=== PATIENT | male | born 1980 | race Two or more races ===

== ENCOUNTER 2019-02-21 14:27 | Outpatient (CLI) | payer OTHER ==
[~2019-02-21 14:27] MED LIST: ALTACE10 MG PO
== END 2019-02-21 14:37 | disposition home or self-care (01) ==
LOC: RAD 14:27
DX: R05 Cough (principal)

== ENCOUNTER 2020-04-05 15:14 | Outpatient (CLI) | payer OTHER | END 2020-04-05 15:23 | disposition home or self-care (01) | LOC: RAD 15:14 | PROVIDERS: ATTEND Orthopaedic Surgery | DX: M25.571 Pain in right ankle and joints of right foot (principal); M79.642 Pain in left hand; M25.342 Other instability, left hand ==

== ENCOUNTER 2020-04-18 12:17 | Outpatient (CLI) | payer OTHER | END 2020-04-18 12:43 | disposition home or self-care (01) | LOC: SONOGRAMA 12:17 | PROVIDERS: ATTEND Orthopaedic Surgery | DX: M25.571 Pain in right ankle and joints of right foot (principal); M25.342 Other instability, left hand ==

== ENCOUNTER 2025-06-10 16:07 | Emergency (ER) | payer OTHER ==
[~2025-06-10] VITALS: Ht 162.6 cm; Wt 70.3 kg
[2025-06-10] MEDS ORDERED: LIPITOR20 MG PO (19:14)
[2025-06-10] MEDS ORDERED: [UNRECOGNIZED DRUG - OTHER] PO (19:15)
[2025-06-10] MEDS ORDERED: FAMOTIDINE/PF 20 MG in 0.9 % SODIUM CHLORIDE 8 ML IV PUSH ONE (19:45)
[2025-06-10] MEDS ORDERED: ACETAMINOPHEN 500 MG GEL..CAP PO ONE ×2 (19:45→19:58)
[2025-06-10] MEDS ORDERED: 0.9 % SODIUM CHLORIDE 1,000 ML IV SCH (19:45)
[2025-06-10] MEDS ORDERED: LABETALOL HCL 20MG/4ML SYRINGE IV ONE (19:45)
[2025-06-10] MEDS ORDERED: FAMOTIDINE/PF 20 MG/2 ML VIAL ONE (19:58)
[2025-06-10] MEDS ORDERED: LABETALOL HCL 100 MG/20 ML ML ONE (19:58)
[2025-06-10] MEDS ORDERED: ONDANSETRON HCL 4 MG in 0.9 % SODIUM CHLORIDE 50 ML IV ONE (20:00)
[2025-06-10 20:04] LABS: BASO % 0.3 % (0.1-1.2); EOS # 0.63 (0.04-0.54); EOS % 5.5 % (0.7-7.0); LYMPH # 2.74 (1.18-3.74); LYMPH % 23.7 % (19.3-53.1); MEAN PLATELET VOLUME 9.50 fl (9.4-12.4); MONO # 1.30 (0.24-0.82); MONO % 11.3 % (4.7-12.5); NEUT # 6.79 (1.56-6.13); NEUT % 58.9 % (34.0-71.1); RED CELL DISTRIBUTION WIDTH 13.5 % (11.6-14.4)
[2025-06-10 20:31] LABS: URINE APPEARANCE Clear; URINE BILIRRUBIN Negative (NEGATIVE); URINE COLOR Yellow; URINE GLUCOSE Negative (NEGATIVE); URINE KETONE Negative (NEGATIVE); URINE LEUKOCYTE Negative; URINE NITRATE Negative; URINE PROTEIN Negative (NEGATIVE); URINE UROBILINOGEN 1.0 E.U./dl
[2025-06-10 20:36] LABS: INR 0.97
[2025-06-10 20:41] LABS: ALT/SGPT 30.0 U/L (12-78); AST/SGOT 20.0 U/L (15-37); BILIRUBIN TOTAL 0.41 mg/dL (0.3-1.2); BUN CREA RATIO 17.0 (7.0-25.0); CREATININE SERUM 0.93 mg/dL (0.70-1.30); GFR 87.86; GLOBULINA 4.3 G/DL (2.4-3.5); GLUCOSE FASTING 100.0 mg/dL (65-100); OSMOLALITY SERUM 277.0 MOSM/KG (275-295)
[2025-06-10] MEDS ORDERED: hydrALAZINE HCL 20 MG VIAL ONE (20:50)
[2025-06-10 20:57] LABS: URINE BACTERIA 9.1 uL (0.0-1933); URINE RBC 58.7 uL (0.0-20.8)
[2025-06-10] MEDS ORDERED: hydrALAZINE HCL 20 MG VIAL IV ONE (21:00)
[2025-06-10] MEDS ORDERED: POTASSIUM BICARBONATE/CIT AC 25 MEQ TABLET.EFF PO ONE (21:15)
[2025-06-10] MEDS ORDERED: POTASSIUM CHLORIDE IN WATER 100 ML IV ONE (21:15)
[2025-06-10 21:26] LABS: URINE BLOOD TRACE; URINE CAST 0.00 uL (0.0-1.40); URINE EPITHELIAL CELLS 0.6 uL (0.0-38.8); URINE WBC 0.4 uL (0.0-23.2)
[2025-06-10] MEDS ORDERED: MAGNESIUM SULFATE 50% 1,000 MG/2 ML VIAL ONE (21:42)
[2025-06-10] MEDS ORDERED: POTASSIUM CHLORIDE/NACL 0.9% 20 MEQ/1,000 ML PIGGYBAG IV ONE (21:42)
[2025-06-10] MEDS ORDERED: MAGNESIUM SULFATE 1,000 MG in 0.9 % SODIUM CHLORIDE 50 ML IV ONE (21:45)
[2025-06-11 04:31] LABS: BUN CREA RATIO 19.0 (7.0-25.0); CREATININE SERUM 0.95 mg/dL (0.70-1.30); GFR 85.73; GLUCOSE FASTING 111.0 mg/dL (65-100); OSMOLALITY SERUM 282.0 MOSM/KG (275-295)
== END 2025-06-11 05:26 | disposition home or self-care (01) ==
LOC: ER 16:07
PROVIDERS: General Practice
DX: I16.1 Hypertensive emergency (principal); I10 Essential (primary) hypertension; E78.49 Other hyperlipidemia; J45.909 Unspecified asthma, uncomplicated; Z88.6 Allergy status to analgesic agent; R51.9 Headache, unspecified